=== PATIENT | female | born 1965 | race Caucasian/White ===

== ENCOUNTER 2022-09-16 05:36 | Emergency (ER) | payer OTHER, SELFPAY ==
--- NOTE | ~2022-09-16 | XR_ITS ---
EXAMINATION: XR CHEST CLINICAL INFORMATION: Chest pressure COMPARISON: None available. TECHNIQUE: Frontal view of the chest was obtained. FINDINGS: Normal symmetric lung volumes. No parenchymal consolidation. No pleural effusion. No pneumothorax. Cardiomediastinal silhouette and pulmonary vascularity are within normal limits. No acute osseous abnormalities. XR/XR chest 1V IMPRESSION: Clear lungs
[2022-09-16 05:44] VITALS: BP 157/85; PULSE 62; RESP 16; TEMP 36.8; O2SAT 100; BMI 29.6
--- NOTE | 2022-09-16 05:47 | ECG_ITS ---
Test Reason : CHEST PAIN Blood Pressure : / mmHG Vent. Rate : 065 BPM Atrial Rate : 065 BPM P-R Int : 152 ms QRS Dur : 086 ms QT Int : 388 ms P-R-T Axes : 001 -07 004 degrees QTc Int : 403 ms Normal sinus rhythm Minimal voltage criteria for LVH, may be normal variant ( R in aVL ) Septal infarct , age undetermined Abnormal ECG No previous ECGs available Referred By: Generic ED Physician Electronically Signed By:Jovani Hutson
[2022-09-16 06:03] LABS: MANUAL DIFF FLAG NO
[2022-09-16 06:19] LABS: Anion Gap 10 (12-20); Blood Urea Nitrogen 13 mg/dL (9-16); Calcium 9.9 mg/dL (8.4-10.2); Carbon Dioxide 30 mmol/L (22-29); Chloride 106 mmol/L (96-108); Creatinine Clr Calc Pharmacy 69.3; Estimated Glomerular Filt Rate > 60; Glucose Random 99 mg/dL (60-115); Potassium 4.3 mmol/L (3.3-5.1); Sodium 142 mmol/L (135-145)
--- NOTE | 2022-09-16 06:20 | ED.CHESTPAIN ---
HPI - Chest Pain General Chief Complaint: Chest Pain Stated Complaint: CP Time Seen by Provider: 09/16/22 06:19 Source: patient and family (, Harish) Mode of arrival: ambulatory Limitations: no limitations History of Present Illness HPI narrative: 57-year-old female who presents emergency department for evaluation of chest pain, back pain and left arm tingling this. The patient is a teacher. She states that yesterday morning, at 08:00 hours, she was proctering [employer] testing yesterday drink and cough when she had an onset of heartburn like symptoms. She states that the pain was located in her sternal area of her chest and radiated to her back. She describes the pain as ?heartburn ?. The pain has been constant since onset (22 hours) but waxes and wanes in intensity from 4/10 to 7/10. She states the pain is currently 4/10. She states she tried taking Gas-X with some brief relief of her pain. She took an omeprazole with no improvement of her discomfort. She did not take any other pain medications. She denied associated lightheadedness, dizziness, diaphoresis, neck, jaw pain, nausea, vomiting, shortness of breath or dyspnea on exertion. She states that this morning she did developed tingling this in her left arm which concerned her. The patient has not had any chest pain or dyspnea on exertion over the past several weeks. She does not have any significant cardiac risk factors. Related Data Allergies Allergy/AdvReac Type Severity Reaction Status Date / Time Penicillins Allergy Rash Verified 09/16/22 05:44 Sulfa (Sulfonamide Allergy Rash Verified 09/16/22 05:44 Antibiotics) Review of Systems Review of Systems: Yes all other systems are reviewed and are negative COUNT INCLUDES THE [facility] Past Medical History COUNT INCLUDES THE [facility] Narrative: Past medical history: Obstructive sleep apnea, osteoporosis on Fosamax. Social history: She denies tobacco use. She drinks 3 vodka drinks per day. She denies drug use. Social History Social History Smoked in Last 30 Days: No Use of substances other than those prescribed or required for medical reasons: No Advance Directives: No Advance Directives Information Provided: No Physical Exam Vital Signs: Vital Signs: Last Vital Signs Temp 98.0 F 09/16/22 08:01 Pulse 56 09/16/22 08:01 Resp 14 09/16/22 08:01 BP 150/84 H 09/16/22 08:01 Pulse Ox 99 09/16/22 08:01 O2 Del Method Room Air 09/16/22 08:01 BMI result Body Mass Index 29.6 Const: General: cooperative and no acute distress Orientation/consciousness: oriented to person and oriented to place Limitations: no limitations HEENT: Head: Yes normal to inspection, Yes normocephalic and Yes atraumatic Ears: external ears normal General nose exam: Normal external nose present Face and sinus: Yes normal facial exam Mouth: Normal oral and palatal mucosa present Throat: Yes posterior oropharynx normal Eyes: General: appearance normal, both eyes and all related structures Pupils: Equal, round and reactive pupils present Neck: Neck: Yes normal visual inspection, Yes no lymphadenopathy, Yes trachea midline and Yes supple Chest: Chest palpation & inspection: normal inspection of the chest and normal palpation of entire chest wall Resp: Effort & Inspection: normal respiratory effort and able to speak in complete sentences Auscultation: clear to auscultation bilaterally Cardio: Rate: regular rate Rhythm: regular rhythm Heart sounds: S1 normal heart sound present, S2 normal heart sound present and no murmurs GI: Inspection: Yes normal to inspection Palpation (GI): Soft to palpation, nontender and no guarding Auscultation: normal bowel sounds : General: Yes no CVA tenderness Back/Spine/Pelvis: Back: no CVA tenderness Skin: General skin exam: no rashes or lesions noted Neuro: General: oriented to person and oriented to place Cranial nerves: Yes CN's II-XII intact bilaterally and Yes Equal, round and reactive pupils present Cognition (Neuro): normal cognition Motor exam (neuro): 5/5 motor strength present throughout Extrem: General: Yes normal to inspection Psych: Appearance: grossly normal Speech and movement: Normal speech and movement present Affect: normal affect Attitude: cooperative Thought process: Normal thought process present Thought content: Normal thought content present Medications Administered Discontinued Medications Generic Name Dose Route Start Last Admin Trade Name Freq PRN Reason Stop Dose Admin Al Hydroxide/Mg Hydroxide 30 ml 09/16/22 06:40 09/16/22 07:36 Magnesium Hydrox/Alum Hydrox 30 Ml Oral.Susp PO 09/16/22 06:41 30 ml ONCE STA Administration Belladonna Alkaloids/Phenobarbital 10 ml 09/16/22 06:40 09/16/22 07:36 Phenobarb/Hyoscy/Atropine/Scop 10 Ml Elixir PO 09/16/22 06:41 10 ml ONCE ONE Administration Lidocaine HCl 10 ml 09/16/22 06:40 09/16/22 07:36 Lidocaine Hcl Viscous 2 % 15 Ml Solution PO 09/16/22 06:41 10 ml ONCE ONE Administration Medical Decision Making Medical Decision Making [facility] Narrative: 57-year-old female who presents emergency department for evaluation of chest pain that began yesterday at 08:00 hours, the pain is been constant but waxing waning intensity is been present for least 22 hours. She developed left arm tingling this this morning which concerned her and brought her to the emergency department for evaluation. Patient's physical examination was unremarkable. I ordered a laboratory evaluation includes CBC, CMP, troponin, urinalysis, chest x-ray, 12 EKG. 0945: My interpretation of patient's diagnostic data is as follows: CBC was normal. CMP was normal. The 1st troponin was below detectable limits, repeat 3 hour troponin was also below detectable. Twelve EKG did reveal Q-waves in V 1 through V3 with inverted T-wave in lead 3 with no old EKG for comparison. Given the 2- troponins , I doubt that the patient's chest pain is secondary to myocardial injury or coronary disease. Pain is most likely secondary to GERD and may be caused by her Fosamax. Patient was advised to discuss continue this medication with her PCP. She was advised to take Pepcid 20 mg once a day in Gaviscon extra-strength 4 times a day. Patient was given printed and verbal instructions and discharged home. Differential Diagnosis The differential diagnosis includes was not limited to gastritis, esophagitis, peptic ulcer disease, gastric ulcer, esophageal ulcer, adverse reaction to Fosamax, myocardial infarction Admission/Observation Consideration of admission/observation: Escalation of care including admission/observation considered Lab Data [facility] Lab Attestation statement: I reviewed the patient's lab results. See [facility] 09/16/22 05:59 09/16/22 05:59 Labs: Lab Results 09/16/22 09/16/22 09/16/22 Range/Units 05:59 05:59 05:59 WBC 6.3 (4.8-10.8) X10*3/uL RBC 4.61 (4.20-5.50) X10*6/uL Hgb 14.2 (12.0-16.0) g/dl Hct 43.6 (37.0-47.0) % MCV 94.6 (80.0-98.0) fL MCH 30.8 (27.0-33.0) pg MCHC 32.6 (31.0-35.0) g/dl RDW 13.0 (11.0-16.0) % Plt Count 207 (160-400) X10*3/uL MPV 9.8 (9.4-12.3) fL Immature Gran % (Auto) 0.2 (0.0-0.4) % Neut % (Auto) 39.8 L (45-73) % Lymph % (Auto) 48.4 H (20-40) % Stoddard % (Auto) 7.6 (2-11) % Eos % (Auto) 3.5 (0-4) % Baso % (Auto) 0.5 (0-2) % Lymph # (Auto) 3.1 (1.2-4.9) X10*3/uL Stoddard # (Auto) 0.5 (0.1-1.2) X10*3/uL Eos # (Auto) 0.2 (0.0-0.4) X10*3/uL Baso # (Auto) 0.0 (0.0-0.2) X10*3/uL Abs Immat Gran (auto) 0.01 (0.00-0.03) X10*3/uL Absolute Neuts (auto) 2.5 (2.0-8.3) x10*3/uL Absolute Nucleated RBC 0.000 (0.0-0.012) X10*3/uL Nucleated RBC % (auto) 0.0 (0.0-0.2) /100WBC Sodium 142 (135-145) mmol/L Potassium 4.3 (3.3-5.1) mmol/L Chloride 106 (96-108) mmol/L Carbon Dioxide 30 H (22-29) mmol/L Anion Gap 10 L (12-20) BUN 13 (9-16) mg/dL Creatinine 0.83 (0.5-1.4) mg/dL Estim Creat Clear Calc 69.3 Estimated GFR > 60 Random Glucose 99 (60-115) mg/dL Calcium 9.9 (8.4-10.2) mg/dL Troponin I High Sens < 2.7 (<3.5-17.0) ng/L Urine Color Urine Appearance Urine pH (5.0-9.0) Ur Specific Eckley (1.005-1.025) Urine Protein (Neg-Trace) mg/dL Urine Glucose (UA) (Negative) mg/dL Urine Ketones (Negative) mg/dL Urine Blood (Negative) Urine Nitrite (Negative) Ur Leukocyte Esterase (Negative) 09/16/22 09/16/22 Range/Units 06:19 09:03 WBC (4.8-10.8) X10*3/uL RBC (4.20-5.50) X10*6/uL Hgb (12.0-16.0) g/dl Hct (37.0-47.0) % MCV (80.0-98.0) fL MCH (27.0-33.0) pg MCHC (31.0-35.0) g/dl RDW (11.0-16.0) % Plt Count (160-400) X10*3/uL MPV (9.4-12.3) fL Immature Gran % (Auto) (0.0-0.4) % Neut % (Auto) (45-73) % Lymph % (Auto) (20-40) % Stoddard % (Auto) (2-11) % Eos % (Auto) (0-4) % Baso % (Auto) (0-2) % Lymph # (Auto) (1.2-4.9) X10*3/uL Stoddard # (Auto) (0.1-1.2) X10*3/uL Eos # (Auto) (0.0-0.4) X10*3/uL Baso # (Auto) (0.0-0.2) X10*3/uL Abs Immat Gran (auto) (0.00-0.03) X10*3/uL Absolute Neuts (auto) (2.0-8.3) x10*3/uL Absolute Nucleated RBC (0.0-0.012) X10*3/uL Nucleated RBC % (auto) (0.0-0.2) /100WBC Sodium (135-145) mmol/L Potassium (3.3-5.1) mmol/L Chloride (96-108) mmol/L Carbon Dioxide (22-29) mmol/L Anion Gap (12-20) BUN (9-16) mg/dL Creatinine (0.5-1.4) mg/dL Estim Creat Clear Calc Estimated GFR Random Glucose (60-115) mg/dL Calcium (8.4-10.2) mg/dL Troponin I High Sens < 2.7 (<3.5-17.0) ng/L Urine Color Yellow Urine Appearance Cloudy Urine pH 7.0 (5.0-9.0) Ur Specific Eckley 1.010 (1.005-1.025) Urine Protein Negative (Neg-Trace) mg/dL Urine Glucose (UA) Negative (Negative) mg/dL Urine Ketones Negative (Negative) mg/dL Urine Blood Negative (Negative) Urine Nitrite Negative (Negative) Ur Leukocyte Esterase Negative (Negative) Independent Interpretation I performed an independent interpretation of an: Plain X-Ray Interpretation: My independent interpretation of the patient's chest x-ray is no acute disease My independent interpretation of the patient's 12 EKG is done at 05:45 is as follows: Normal sinus rhythm with a rate of 65, normal [place], QRS and QTC duration, inverted T-wave in lead 3, Q-waves V 1 through V3, no ST segment elevation, no ST segment depression, no PACs, no PVCs. There is no old EKG for comparison to determine the age of Q-waves. Radiology Impression Discussion of test interpretation with radiology: I have reviewed the radiologist's reading. Radiologist Impression: XR chest 1V IMPRESSION: Clear lungs Dictated By:Jean-Pierre Hackett MD Independent Historian Clinical information obtained from an independent historian. History obtained from or confirmed by: Spouse Discharge Plan Discharge Clinical Impression: Chest pain GERD (gastroesophageal reflux disease) Qualifiers: Esophagitis bleeding: without hemorrhage Patient Disposition: Home, Self-Care Instructions: Gastroesophageal Reflux Disease (ED) Additional Instructions: Your blood work was normal. Your high sensitivity troponin I (marker of heart damage/heart attack) was initially below detectable limits and the 3 hour repeat was also below detectable limits which is very reassuring suggesting that your pain is not caused by heart injury. Take Pepcid 20 mg once a day for 3 months. Take extra-strength Gaviscon 10 mL (2 tsp) 4 times a day as needed for abdominal pain. You should discuss with your prescribing provider, the possibility of Fosamax causing inflammation of your stomach and esophagus as the cause of your chest pain. Follow-up with your doctor in 2 days. Please return to the emergency department if your symptoms get worse or if you develop any symptoms that are concerning to you.
[2022-09-16 06:21] LABS: Basophils Percent Auto 0.5 % (0-2); Eosinophils Absolute Auto 0.2 X10*3/uL (0.0-0.4); Eosinophils Percent Auto 3.5 % (0-4); Hematocrit 43.6 % (37.0-47.0); Hemoglobin 14.2 g/dl (12.0-16.0); Imm Gran Abs Auto 0.01 X10*3/uL (0.00-0.03); Imm Gran Pct Auto 0.2 % (0.0-0.4); Lymphocytes Absolute Auto 3.1 X10*3/uL (1.2-4.9); Lymphocytes Percent Auto 48.4 % (20-40); Mean Corpuscular HGB Conc 32.6 g/dl (31.0-35.0); Mean Corpuscular Hemoglobin 30.8 pg (27.0-33.0); Mean Corpuscular Volume 94.6 fL (80.0-98.0); Mean Platelet Volume 9.8 fL (9.4-12.3); Monocytes Absolute Auto 0.5 X10*3/uL (0.1-1.2); Monocytes Percent Auto 7.6 % (2-11); Neutrophils Absolute Auto 2.5 x10*3/uL (2.0-8.3); Neutrophils Percent Auto 39.8 % (45-73); Platelet Count 207 X10*3/uL (160-400); Red Blood Count 4.61 X10*6/uL (4.20-5.50); White Blood Count 6.3 X10*3/uL (4.8-10.8)
--- NOTE | 2022-09-16 06:23 | PC.NURSE ---
this rn assumed care of pt from triage @ 0600. pt at bedside. pt placed on radio frequency design engineer. 20g IV placed in L Ac. pt tolerated well. pt able to provide urine sample. sample sent down to lab. dr crespo made aware of pt status
[2022-09-16 06:25] LABS: Appearance Urine Cloudy; Color Urine Yellow; Glucose Urine UA Negative (Negative); Leukocyte Esterase Urine Negative (Negative); Nitrite Urine Negative (Negative); Urine Blood Negative (Negative); Urine Ketones Negative (Negative); Urine Protein Negative (Neg-Trace)
[2022-09-16 06:29] LABS: Troponin-I High Sensitivity < 2.7 ng/L (<3.5-17.0)
[2022-09-16] MEDS: Lidocaine HCl Viscous 2 % 15 ML SOLUTION 10 ML PO (07:36)
[2022-09-16] MEDS: PHENobarb/Hyoscy/Atropine/Scop 10 ML ELIXIR PO (07:36)
[2022-09-16] MEDS: Magnesium Hydrox/Alum Hydrox 30 ML ORAL.SUSP PO (07:36)
[2022-09-16 08:01] VITALS: BP 150/84; PULSE 56; RESP 14; TEMP 36.7; O2SAT 99
--- NOTE | 2022-09-16 08:29 | PC.NURSE ---
assumed care of this pt at 0700. pt a&o x4. calm, pleasant, and cooperative. pt medicated per jul. resting quietly on stretcher in no apparent distress with at bedside. awaiting trop redraw at 0900. santo. maye
[2022-09-16 09:39] LABS: Troponin-I High Sensitivity < 2.7 ng/L (<3.5-17.0)
== END 2022-09-16 10:23 | disposition home or self-care (01) ==
PROVIDERS: Emergency Provider Emergency Medicine Emergency Medical Services; PCP Internal Medicine
DX: R07.89 Other chest pain (principal); Z79.899 Other long term (current) drug therapy
CPT/HCPCS: 36415; 71045; 80048; 81003; 84484; 85025; 93005; 99283; 99285

== ENCOUNTER 2024-08-14 07:48 | Outpatient (REF) | payer BC, SELFPAY ==
--- OUTSIDE RECORDS SUMMARY | 2024-08-14 07:51 | XMS_ITS | Data Portability ---
Author Organization [place] - [facility], Allergy Address [address] [place] [id number] Care Team Providers Care Business Partner Name Role Phone BECCA LYNSEYASHELYNandini Primary Care Provider [phone] Assessment Encounter Date Assessment Date Assessment LastModified by Organization Details LastModified Time 12/27/2023 12/27/2023 Patient describes improved sleep and breathing pattern, she has healed well from her tonsillectomy. No specific further workup or intervention [email or web address] Not available 12/27/2023 15:34:11 Plan of Treatment Reminders Order Date Submit Date Provider Last Modified By Organization Details Last Modified Time Details Appointments None record ed. Lab None record ed. Referral None record ed. Procedures None record ed. Surgeries None record ed. Imaging None record ed. Medication Orders None record ed. Patient TargetsNo targets recorded. Patient InstructionsNo instructions recorded. Reason for Referral None Reported. Results Created Date Observation Date Name Description Value Unit Range Abnormal Flag Note LastModifiedBy Organization Detail LastModifiedTime 12/23/19 24 09/16/2022 imagi ng/di agnos tic resul t No observ ation record ed. [email or web address] Not Available 13:38:38 12/23/19 24 10/26/2022 imagi ng/di agnos tic resul t No observ ation record ed. [email or web address] Not Available 13:38:42 12/23/19 24 01/20/2023 imagi ng/di agnos tic resul t No observ ation record ed. [email or web address] Not Available 13:38:52 Result Notes None recorded. Problems Name Problem SNOMED Code Status Onset Date Resolution Date Notes Provider Name and Address Organization Details Recorded Time Dysphonia 59431747 Active 2022 Hoarseness ; Note: Date Diagnosed: 09/16/2022 2:14 PM (R49.0) Dysphoni a; Note: Date Diagnosed: 08/17/2022 9:42 AM (R49.0) ; Start Date : 08/17/2022 Not Available [facility] 4 02:52:36 Hypertroph y of tonsils 85140585 Active 2022 Hypertroph y of tonsils; Note: Date Diagnosed: 08/17/2022 9:42 AM (J35.1) Not Available [facility] 4 02:52:34 Chronic disease of tonsils AND/OR adenoids 56688677 Active 2022 Calculus, tonsil; Note: Date Diagnosed: 08/17/2022 9:42 AM (J35.8) Not Available [facility] 4 02:52:37 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 Procedures Surgical History Date Name Laterality Status Provider Name and Address Organization Details Recorded Time 4 Removal of tonsils completed EMILIANO MCMULLEN MD [address] [place] [address], [place], [phone], [facility] - [facility] 12/27/2023 12:16:24 Imaging Results Imaging Date Name Status LastModified by Organ atmission hospital Details LastModified Time 09/16/2022 imaging/diag nostic result completed Information not available 12/23/2023 13:38:38 10/26/2022 imaging/diag nostic result completed Information not available 12/23/2023 13:38:42 01/20/2023 imaging/diag nostic result completed Information not available 12/23/2023 13:38:52 Procedure Notes None recorded. Medical Equipment None Reported. Allergies Allergen ID Allergen Name Allergen Category Reaction Reaction Severity Criticality Documentation Date Start Date Code Code System Note Provider Name and Address Organization Details Recorded Time 874790 Substance with sulfonami de structure and antibacte rial mechanism of action (substanc e) medicatio n other Not available Not available 09/14/2023 42142 8003 SNOMED React ion: Unkno wn; Not Available [facility] 01:12:14 198710 Product containin g penicilli n (product) medicatio n other Not available Not available 09/14/2023 62126 8001 SNOMED React ion: Unkno wn; Not Available [facility] 4 01:12:19 Medications Name Sig Start Date Stop Date Status Note LastModified by Organization Details LastModified Time buspirone 5 mg tablet TAKE ONE TABLET BY MOUTH TWICE A DAY active Not Available Not Available No t Available atorvasta tin 10 mg tablet TAKE 1 TABLET BY MOUTH EVERY DAY active Not Available Not Available No t Available prednison e 20 mg tablet TAKE 1 TABLET BY MOUTH EVERY DAY 12/26 completed Not Available Not Available Not Available alendrona te 70 mg tablet active Medicati on ID: [id number] B rand Name: alendron ate Send Method: E-Prescr ibed Sub s Allowed: subs OK Medic ationGen ericName : alendron ate Not Available Not Available Not Available pantopraz ole 20 mg tablet,de layed release TAKE ONE TABLET BY MOUTH EVERY DAY active Not Available Not Available No t Available pantopraz ole 40 mg tablet,de layed release TAKE 1 TABLET BY MOUTH DAILY. 12/26 completed Not Available Not Available Not Available clobetaso l 0.05 % scalp solution 12/26 completed Medicati on ID: [id number] B rand Name: clobetas ol Send Method: E-Prescr ibed Sub s Allowed: subs OK Medic ationGen ericName : clobetas ol Not Available Not Available Not Available cyclobenz aprine 5 mg tablet TAKE 1 TABLET BY MOUTH 2 TIMES DAILY NEEDED FOR MUSCLE SPASMS FOR UP TO 10 DAYS. 12/26 completed Not Available Not Available Not Available azelaic acid 15 % topical gel 12/26 completed Medicati on ID: [id number] B rand Name: azelaic acid Sen d Method: E-Prescr ibed Sub s Allowed: subs OK Medic ationGen ericName : azelaic acid Not Available Not Available Not Available Paxlovid 300 mg (150 mg x 2)-100 mg tablets in a dose pack TAKE THREE TABLETS BY MOUTH TWICE A DAY 12/26 completed Not Available Not Available Not Available Vitals Date Recorded Body height Body mass index (BMI) Body weight Provider Name and Address Organization Details Last Updated DateTime 12/27/2023 157.48 cm 30.2 kg/m2 12163.74 g Shaunna Villatoro [place] - [facility] 12/27/2023 15:15:42 Social History None recorded. Functional Status None recorded. Mental Status None recorded. Family History Nothing Reported. Medical History No medical history recorded. Gynecological HistoryNo gynecological history recorded. Obstetrics History GPAL:G 0 P 0 0 0 0 Past Encounters Encounter ID Performer Location Encounter Start Date Encounter Closed Date Diagnosis/Indication Diagnosis SNOMED-CT Code Diagnosis ICD10 Code Diagnosis Note [id number] EMILIANO MCMULLEN MD [facility] [address] [address] 12/27/2023 15:04:05 12/27/2023 15:34:04 Obstructive sleep apnea syndrome 51701859 G47.33 Health Concerns Section Related Observation LastModified by Organization Detai ls LastModified Time None Recorded Concern Status LastModified by Organization Details LastModified Time None Recorded Advance Directives Directive None Recorded Payers Encounter Date Sequence Insurance Name Policy Number Policy Lubin Covered Member ID Lubin Member ID Guarantor Name 12/27/2023 1 [employer] [facility] ([facility]) [id number] Karolyn Judy Velarde [id number] Karolyn Velarde Notes Date Note Type Note Provider Name and Address Organization Details Recorded Time 12/27/2023 text/html Patient of Dr. BurnettObstructive sleep apnea09/26/2022 CPAP titration [facility] at [facility] 30AHI equals 1 at 6 cmH2O (AHI 7 in 2017) 10/19/2023, Neno JOHNSON, tonsillectomyfeels her sleep is improved. fit bit is saying 94-96% oxygen through the night EMILIANO MCMULLEN MD [address] [place] [address], [phone], [facility] - [facility] 12/27/2023 15:35:29 OBGyn Episode No OBEpisode recorded.
--- OUTSIDE RECORDS SUMMARY | 2024-08-14 07:51 | XMS_ITS | Clinical Summary ---
Author Organization [address] Address [address] [place] [phone] Phone Care Team Providers Care Twx Operator Name Role Phone Bryan Beavers MD Primary Care Provider Allergies Active Allergy Reactions Criticality Noted Date Comments Penicillins 12/10/2008 Other Reaction(s): Rash/Dermatitis Sulfa (Sulfonamide Antibiotics) 12/10/2008 Sulfa Drugs Other Reaction(s): Rash/Dermatitis Medications busPIRone (BUSPAR) 5 mg tablet Take 1 tablet (5 mg total) by mouth 2 (two) times a day. 180 each 1 03/28/2024 Active atorvastatin (LIPITOR) 10 mg tablet Take 1 tablet (10 mg total) by mouth 1 (one) time each day. 90 each 03/28/2024 Active zoledronic acid (Reclast) 5 mg/100 mL piggyback Infuse 100 mL (5 mg total) into a venous catheter 1 (one) time for 1 dose. 100 mL 03/28/2024 Active pantoprazole (PROTONIX) 20 mg EC tablet Take 1 tablet (20 mg total) by mouth 2 (two) times a day. Do not crush, chew, or split. 180 each 1 03/29/2024 Active calcium citrate-vitamin D (CITRACAL+D) 315 mg-5 mcg (200 unit) per tablet Take 2 tablets by mouth 1 (one) time each day. Active melatonin 10 mg tablet Take 1 tablet (10 mg total) by mouth at bedtime. Active Active Problems Problem Noted Date Diagnosed Date History of tonsillectomy 03/28/2024 Generalized anxiety disorder 07/20/2023 Other hyperlipidemia 07/20/2023 Other osteoporosis without current pathological fracture 07/20/2023 Dysphonia 12/21/2022 Rosacea 02/25/2022 NYDIA (obstructive sleep apnea) 09/03/2017 Overview (02/25/2024): Home study doen by Dr. Boles Low back pain radiating to right leg 12/10/2016 Varicose veins of lower extremity 04/04/2015 Migraine headache 12/10/2008 Overview (02/25/2024): One or two per month usually resolve with Imitrex Resolved Problems Problem Noted Date Diagnosed Date Resolved Date Vitamin D deficiency 12/21/2018 024 Encounters Date Type Department Care Team Description 06/21/[address] [facility] - Main Lab [address] [facility] [place] [address] Radha Valentin MD Encounter for gynecological examination (general) (routine) without abnormal findings 06/20/2024 1:00 PM EST Consult Gastroenterology - [place] [address] [place] [address] Chacorta Barksdale, SHAINA Age related osteoporosis, unspecified pathological fracture presence (Primary Dx); Gastroesophageal reflux disease, unspecified whether esophagitis present; NYDIA (obstructive sleep apnea) from Last 3 Months Immunizations Name Administration Dates Next Due Hepatitis B (Vkcfugx-J-Mufzc , Recombivax HB-Adult) 19yo and older 02/11/2011,09/24/2010,08/27/2010 Influenza Quadravalent, MDCK , 0.5ml, preservative free (Flucelvax) 6mo and older 01/27/2020,05/06/2018 Influenza Quadravalent, MDCK , 0.5ml, with preservative (Flucelvax) 6mo and older 01/19/2017 Influenza trivalent, 0.5mL, preservative free (Fluarix; FluLaval; Fluzone) ages 6mo and older (Afluria) 3 years and older 02/22/2021,02/13/2019,02/19/2016,2013,01/26/2011,02/04/2009 Influenza, Unspecified 02/10/2022,01/27/2020,05/2014 MMR, measles mumps and rubel la Live (Priorix; M-M-R II) 12mo and older 08/27/2010 Pfizer SARS-CoV-2 COVID-19, mRNA, LNP-S, preservative free 10/18/2021,08/10/2020,07/20/2020 Tdap Tetanus diptheria acell ular pertussis (Boostrix; Adacel) 7yo and older 12/01/2017,12/10/2008 Zoster recombinant (Shingrix ) 19yo and older 08/19/2022 Surgical History Surgery Date Site/Laterality Comments SECTION PROCEDURE: HISTORICAL DELIVERY; COMMENT: Multiple COLONOSCOPY 05/31/15 PROCEDURE: HISTORICAL COLONOSCOPY; COMMENT: normal Medical History Medical History Date Comments Vitamin D deficiency 12/21/2018 Family History Medical History Relation Name Comments Other: RENAL STONE Brother Heart attack Father Hypertension Mother Hypertension, h yperlipidemia, OSTEOPOROSIS Migraines Sister 1 Migraines Sister 2 Other: ANXIETY Sister 3 Other: ANXIETY Sister 4 Thyroid disease Sister 5 Relation Name Status Comments Brother Alive Father Mother Alive Sister 1 Alive Sister 2 Alive Sister 3 Alive Sister 4 Alive Sister 5 Sister 6 Alive Sister 7 Alive Sister 8 Alive Social History Tobacco Use Types Packs/Day Years Used Date Smoking Tobacco: Never Smokeless Tobacco: Never Tobacco Cessation:Counseling Given: Not Answered Alcohol Use Standard Drinks/Week Comments Yes 8.3 (1 standard drink = 0.6 oz p ure alcohol) Comments Unknown Sex and Gender Information Value Date Recorded Sex Assigned at Not on file Legal Sex Female 11:56 AM EST Gender Identity Not on file Sexual Orientation Not on file Obstetrics History Last Filed Vital Signs Vital Sign Reading Time Taken Comments Blood Pressure 132/76 06/20/2024 12:58 PM EST Pulse 78 06/20/2024 12:58 PM EST Temperature 36.1 ??C (97 ??F) 03/28/2024 3:27 PM EST Respiratory Rate 16 03/28/2024 3:27 PM EST Oxygen Saturation 98% 03/28/2024 3:27 PM EST Inhaled Oxygen Concentration - - Weight 78.5 kg (173 lb) 06/20/2024 12:58 PM EST Height 157.5 cm (5' 2 ) 06/20/2024 12:58 PM EST Body Mass Index 31.64 06/20/2024 12:58 PM EST Plan of Treatment Upcoming Encounters Date Type Department Care Team (Late st Contact Info) Description 08/24/2024 8:00 AM EDT Appointment [facility] Xray [address] [place] [address] Health Maintenance Due Date Last Done Comments Breast Cancer Screening 1965 Pneumococcal Vaccine: 50+ Years (1 of 1 - PCV) 2014 Social Influencers of Health Screening 04/11/2022 Depression Screening 03/28/2025 03/28/2024 Colorectal Cancer Screening: Colonoscopy 05/31/2025 05/31/2015, 05/31/2015 Cholesterol Screening (Lipid Panel) 03/29/2029 03/29/2024, 06/16/2023 Cervical Cancer Screening: HPV 06/20/2029 06/20/2024 Osteoporosis Screening (Bone Density Screening) 04/15/2032 04/15/2022 DTaP,Tdap,and Td Vaccines (4 - Td or Tdap) 03/18/2034 03/18/2024, 12/01/2017, 12/10/2008 RSV Immunization Adult Patients (1 - 1-dose 75+ series) 08/09/2039 MMR Vaccines Aged Out 08/27/2010 No longer eligi ble based on patient's age to complete this topic Hepatitis B Vaccines Completed 02/11/2011, 09/24/2010, 08/27/2010 Hepatitis C Screening Completed 05/04/2011 Zoster Vaccines Completed 08/19/2022, 04/10/2022 COVID-19 Vaccine Completed 03/18/2024, , 02/22/2021, Additional history exists Influenza Vaccine Completed 03/18/2024, , 02/10/2022, Additional history exists HIV Screening Completed 03/29/2024 HIB Vaccines Aged Out No longer eligi ble based on patient's age to complete this topic HPV Vaccines Aged Out No longer eligi ble based on patient's age to complete this topic Hepatitis A Vaccines Aged Out No long er eligible based on patient's age to complete this topic IPV Vaccines Aged Out No longer eligi ble based on patient's age to complete this topic Meningococcal ACWY Vaccine Aged Out N o longer eligible based on patient's age to complete this topic Meningococcal B Vaccine Aged Out No l onger eligible based on patient's age to complete this topic Pneumococcal Vaccine: Pediatrics (0 to 5 Years) and At-Risk Patients (6 to 64 Years) Aged Out No longer eligible based on patient's age to complete this topic RSV Immunization Patients Under 20 months Aged Out No longer eligible based on patient's age to complete this topic Varicella Vaccines Aged Out No longer eligible based on patient's age to complete this topic Procedures Procedure Name Priority Date/Time Associated Diagnosis Comments PAP SMEAR Routine 06/20/2024 12:00 AM EST Encounter for gynecological examination (general) (routine) without abnormal findings HPV WITH REFLEX GENOTYPE Routine 06/20/2024 12:00 AM EST Encounter for gynecological examination (general) (routine) without abnormal findings HIV 1, 2 ANTIBODY, P24 ANTIGEN WITH REFLEX TO DIFFERENTIATION Routine 03/29/2024 8:26 AM EST Encounter for screening for HIV LIPID PANEL WITH REFLEX TO DIRECT LDL Routine 03/29/2024 8:26 AM EST Other hyperlipidemia DXA BONE DENSITY STUDY 1+ SITS AXIAL SKEL Routine 04/15/2022 4:13 PM EST Encounter for screening for osteoporosis HM COLONOSCOPY Routine 05/31/2015 HEPATITIS C SCREENING Routine 05/04/2011 from Last 3 Months or Most Recently Relevant to Health Maintenance Results * HPV with reflex genotype (06/20/2024 12:00 AM EST) HPV Negative Negative LAB MICROBIOLOGY METHOD 06/22/2024 3:14 PM EST [facility] Brushing/Spatula Cervix uteri structure / Unknown 06/20/2024 06/21/2024 4:56 PM EST us Radha Valentin MD LAB MOLECULAR DIAGNOSTIC S ORDERABLES Final Result [facility] [address] [place] [address], * (ABNORMAL) Pap smear (06/20/2024 12:00 AM EST) Interpretation Atypical squamous cells of undetermined significance(A) 06/21/2024 4:56 PM EST [facility] Clinical Information Lsil 06/21/2024 4:56 PM [facility] General Categorization Epithelial cell abnormality, see interpretation 06/21/2024 4:56 PM [facility] Specimen Adequacy Satisfactory for evaluation, endocervical/tra nsformation zone component present 06/21/2024 4:56 PM [facility] Pap Methodology Liquid Based Pap Test 06/21/2024 4:56 PM [facility] Disclaimer The Pap test is a screening test which carries an inherent false negative rate. These test results should be correlated with the patient's clinical findings and history. This Pap test was processed using an automated screening system. Technical cytopathology services provided by [facility], at [address] [place] [id number] (CLIA # [id number]/Ariel Page MD, Deployment Specialist.) 06/21/2024 4:56 PM [facility] Console Pap Interpretation Reported 06/21/2024 4:56 PM [facility] Brushing/Spatula Cervix uteri structure / Unknown 06/20/2024 06/21/2024 7:04 AM EST Radha Valentin MD LAB CYTOLOGY ORDERABLES Final Result [facility] [address] [place] [address], [place] [phone] * HIV 1,2 antibody, p24 antigen with reflex to differentiation (03/29/2024 8:26 AM EST) [facility] HIV Combo AB/AG Negative Negative LAB CHEMISTRY METHOD 03/29/2024 5:05 PM EST [facility] Blood Venous blood specimen / Unknown Venipuncture / Unknown 03/29/2024 8:26 AM EST 03/29/2024 8:26 AM EST Narrative [facility] - 03/29/2024 5:05 PM EST This assay is a 4th generation assay allowing for earlier detection of HIV infection by detecting the presence of the HIV-1 p24 antigen as well as the traditional antibodies to HIV type 1 (including group O) and type 2. ??Use of a 4th generation assay is the current CDC recommendation for HIV screening. Bryan Beavers MD LAB BLOOD ORDERABLES F inal Result Performing Organization Address City/[facility]/ZIP Co de Phone Number [facility] [address] [place] [address], [place] [phone] * Lipid panel with reflex to direct LDL (03/29/2024 8:26 AM EST) [facility] Cholesterol 151 0 - 200 mg/dL LAB CHEMISTRY METHOD 03/29/2024 4:18 PM EST [facility] Triglycerides 93 0 - 150 mg/dL LAB CHEMISTRY METHOD 03/29/2024 4:18 PM EST [facility] HDL 60 >=40 mg/dL LAB CHEMISTRY METHOD 03/29/2024 4:18 PM EST [facility] LDL Calculated 72 0 - 100 mg/dL LAB CHEMISTRY METHOD 03/29/2024 4:18 PM EST [facility] VLDL Cholesterol Jose 18.6 mg/dL LAB CHEMISTRY METHOD 03/29/2024 4:18 PM EST [facility] Non HDL Chol. (LDL+VLDL) 91 <145 mg/dL LAB CHEMISTRY METHOD 03/29/2024 4:18 PM EST [facility] Chol/HDL Ratio 2.5 0.0 - 4.4 LAB CHEMISTRY METHOD 03/29/2024 4:18 PM EST [facility] Blood Venous blood specimen / Unknown Venipuncture / Unknown 03/29/2024 8:26 AM EST 03/29/2024 8:26 AM EST us Bryan Beavers MD LAB BLOOD ORDERABLES F inal Result [facility] [address] [place] [address], * DXA BONE DENSITY STUDY 1+ SITS AXIAL SKEL (04/15/2022 4:13 PM EST) Anatomical Region Laterality Modality Bone Densitometr y 02/25/2022 4:10 PM EDT Narrative 04/15/2022 4:22 PM EST BONE DENSITY ? Lumbar Spine T-score is -1.5 ?? (SD relative to 20-29 y/o adult) Z-score is -0.2 ??(SD relative to age matched peers) This is consistent with osteopenia by criteria defined by the WHO. Left Hip T-score is -2.7 Z-score is -1.5 This is consistent with osteoporosis by criteria defined by the WHO. Impression: Based on the World Health Organization criteria, Karolyn Velarde should be classified as having osteoporosis. T [facility] Department of Internal Medicine recommends using National Osteoporosis Foundation (NOF) guidelines in treatment decisions related to osteoporosis. NOF guidelines suggest considering treatment for postmenopausal women and men aged 50 or older presenting with the following: History of hip or vertebral fracture. T-score less than or equal to -2.5 (DXA) at the femoral neck, total hip, or spine, after appropriate evaluation to exclude secondary causes. Low bone mass (T-score between -1.0 and -2.5 at the femoral neck or spine) AND a 10-year probability of a hip fracture greater than or equal to 3% OR a 10-year probability of a major osteoporosis-related fracture greater than or equal to 20% based on the [place]-adapted WHO algorithm Please note that all treatment decisions require clinical judgment and consideration of individual patient factors, including patient preferences, co-morbidities, previous drug use, risk factors not captured in the FRAX model (e.g., frailty, falls, vitamin D deficiency, increased bone turnover, interval significant decline in bone density) and possible under- or over-estimation of fracture risk by FRAX. Procedure Note Edna Rabago MD - 06/08/2023 BONE DENSITY Lumbar Spine T-score is -1.5 (SD relative to 20-29 y/o adult) Z-score is -0.2 (SD relative to age matched peers) This is consistent with osteopenia by criteria defined by the WHO. Left Hip T-score is -2.7 Z-score is -1.5 This is consistent with osteoporosis by criteria defined by the WHO. Impression: Based on the World Health Organization criteria, Karolyn Velarde should beclassified as having osteoporosis. T [facility] Department of Internal Medicine recommendsusing National Osteoporosis Foundation (NOF) guidelines in treatmentdecisions related to osteoporosis. NOF guidelines suggest consideringtreatment for postmenopausal women and men aged 50 or older presentingwith the following: History of hip or vertebral fracture. T-score less than or equal to -2.5 (DXA) at the femoral neck, total hip,or spine, after appropriate evaluation to exclude secondary causes. Low bone mass (T-score between -1.0 and -2.5 at the femoral neck or spine)AND a 10-year probability of a hip fracture greater than or equal to 3% ORa 10-year probability of a major osteoporosis-related fracture greaterthan or equal to 20% based on the [place]-adapted WHO algorithm Please note that all treatment decisions require clinical judgment andconsideration of individual patient factors, including patientpreferences, co-morbidities, previous drug use, risk factors not capturedin the FRAX model (e.g., frailty, falls, vitamin D deficiency, increasedbone turnover, interval significant decline in bone density) and possibleunder- or over-estimation of fracture risk by FRAX. Bryan Beavers MD IMG DXA PROCEDURES Fin al Result * Colonoscopy (05/31/2015) [facility] Colonoscopy No Interpretation , Abstracted Anatomical Region Laterality Modality Other Historical Provider HEALTH MAINTENANCE Final Result * Hepatitis C Screening (05/04/2011) [facility] Hepatitis C Screening Abstracted Historical Provider HEALTH MAINTENANCE Final Result from Last 3 Months or Most Recently Relevant to Health Maintenance Insurance [facility] Care Teams Twx Operator Relationship Specialty Start Date End Date Bryan Beavers MD [address] [place] [address] PCP - General 03/03/22
--- OUTSIDE RECORDS SUMMARY | 2024-08-14 07:51 | XMS_ITS | Encounter Summary ---
Author Organization [facility] Address [address] [place] [address] Care Team Providers Care Mechanotherapist Name Role Phone Bryan Beavers MD Primary Care Provider Encounter Details Date Type Department Care Team (Latest Contact Info) Description 06/21/2024 Lab Requisition [facility] - Main Lab [address] [place] [address] Radha Valentin MD [address] [phone] Encounter for gynecological examination (general) (routine) without abnormal findings Social History Tobacco Use Types Packs/Day Years Used Date Smoking Tobacco: Never Smokeless Tobacco: Never Alcohol Use Standard Drinks/Week Comments Yes 8.3 (1 standard drink = 0.6 oz p ure alcohol) Comments Unknown Sex and Gender Information Value Date Recorded Sex Assigned at Not on file Legal Sex Female 11:56 AM EST Gender Identity Not on file Sexual Orientation Not on file documented as of this encounter Plan of Treatment Upcoming Encounters Date Type Department Care Team (Late st Contact Info) Description 08/24/2024 8:00 AM EDT Appointment [facility] Xray [address] [place] [phone] documented as of this encounter Procedures Procedure Name Priority Date/Time Associated Diagnosis Comments HPV WITH REFLEX GENOTYPE Routine 06/20/2024 12:00 AM EST Encounter for gynecological examination (general) (routine) without abnormal findings PAP SMEAR Routine 06/20/2024 12:00 AM EST Encounter for gynecological examination (general) (routine) without abnormal findings documented in this encounter Results * HPV with reflex genotype (06/20/2024 12:00 AM EST) HPV Negative Negative LAB MICROBIOLOGY METHOD 06/22/2024 3:14 PM EST [facility] Brushing/Spatula Cervix uteri structure / Unknown 06/20/2024 06/21/2024 4:56 PM EST us Radha Valentin MD LAB MOLECULAR DIAGNOSTIC S ORDERABLES Final Result [facility] [address] [place] [address], * (ABNORMAL) Pap smear (06/20/2024 12:00 AM EST) Interpretation Atypical squamous cells of undetermined significance(A) 06/21/2024 4:56 PM EST [facility] Clinical Information Lsil 06/21/2024 4:56 PM [facility] General Categorization Epithelial cell abnormality, see interpretation 06/21/2024 4:56 PM [facility] Specimen Adequacy Satisfactory for evaluation, endocervical/tra nsformation zone component present 06/21/2024 4:56 PM EST [facility] Pap Methodology Liquid Based Pap Test 06/21/2024 4:56 PM [facility] Disclaimer The Pap test is a screening test which carries an inherent false negative rate. These test results should be correlated with the patient's clinical findings and history. This Pap test was processed using an automated screening system. Technical cytopathology services provided by [facility], at [address] [place] [address] (CLIA # [id number]/Ariel Page MD, Chute Tender.) 06/21/2024 4:56 PM EST [facility] Console Pap Interpretation Reported 06/21/2024 4:56 PM EST [facility]) [facility] Brushing/Spatula Cervix uteri structure / Unknown 06/20/2024 06/21/2024 7:04 AM EST us Radha Valentin MD LAB CYTOLOGY ORDERABLES Final Result [facility] [address] [place] [address], documented in this encounter Visit Diagnoses Diagnosis Encounter for gynecological examination (general) (routine) without abnormal findings documented in this encounter Care Teams Mechanotherapist Relationship Specialty Start Date End Date Bryan Beavers MD [address] [place] [address] PCP - General 03/03/22 documented as of this encounter
== END 2024-08-14 07:49 | disposition home or self-care (01) ==
LOC: HO.MAMMO 07:48
PROVIDERS: PCP Internal Medicine; Visit Provider Obstetrics & Gynecology
DX: Z12.31 Encounter for screening mammogram for malignant neoplasm of breast (principal)
CPT/HCPCS: 77063; 77067

== ENCOUNTER → 2024-08-14 08:00 | Outpatient (BNV) | payer BC, SELFPAY | PROVIDERS: PCP Internal Medicine; Visit Provider Internal Medicine | DX: Z12.31 Encounter for screening mammogram for malignant neoplasm of breast (principal) | CPT/HCPCS: 77063; 77067 ==